=== PATIENT | male | born 1990 | race Caucasian/White ===

== ENCOUNTER 2016-07-20 01:01 | Emergency (ER) | payer SELFPAY ==
[2016-07-20] MEDS ORDERED: PHARMACY KEY 1 EACH EACH MC ONE (01:12)
[2016-07-20 01:18] VITALS: BP 130/79
[2016-07-20] MEDS ORDERED: PROPARACAINE HCL 0.5% OPTH OP ONE (01:19)
[2016-07-20] MEDS ORDERED: CYCLOPENTOLATE HCL 2% OP ONE (01:28)
--- NOTE | 2016-07-20 01:31 | ED Physician Documentation ---
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 Pain began around 1500 and has progressed. No visual problems other than light sensitivity.) - ROS CONST: no problems - PAST HX Past History: none Allergies/Adverse Reactions: Allergies Allergy/AdvReac Type Severity Reaction Status Date / Time No Known Allergies Allergy Verified 07/20/16 01:11 Home Medications: Ambulatory Orders Medication Instructions Recorded Hydrocodone/Acetaminophen [Cerro 1 each PO Q4H PRN #20 tablet 07/20/16 7.5-325 Tablet] Neomy Sulf/Polymyx B Sulf/Hc 1 drop OP TID #1 bottle 07/20/16 [Cortisporin Opth Susp] - SOCIAL HX Smoking History: non-smoker - FAMILY HX Family History: none - VITAL SIGNS Vital Signs: Vital Signs Temp Pulse Resp BP Pulse Ox 86 16 130/79 99 07/20/16 01:01 07/20/16 01:01 07/20/16 01:01 07/20/16 01:01 - REVIEWED ASSESSMENTS Nursing Assessment Reviewed: Yes Vitals Reviewed: Yes Progress - Progress Progress: near complete relief of pain after Proparacaine and Cyclogyl drop instilled. REcommend patient follow up with optometry tomorrow if pain continues. Will Rx antibiotic drops and norco ED Results Lab/Radiology - Orders Orders: ED Orders Category Date Time Status Cyclopentolate HCl [Cyclogyl] Med 07/20/16 01:28 Once 1 drop OP NOW [facility] 07/20/16 01:12 Discontinued 1 each [facility] ONE Proparacaine HCl [Ophthaine] Med 07/20/16 01:19 Once 2 drop OP NOW ONE Eye Trauma Physical Exam - Physical Exam General Appearance: no acute distress Examined with Slit Lamp: No (no slit lamp available) Visual Acuity: no globe trauma Eyelids: nml inspection Corneas: nml inspection, other (pt eye's instilled with Proparacaine drops. No wood's lamp available for fluoroscein stain uptake exam) Pupils: PERRL Anterior Chambers: nml inspection Skin: nml color Respiratory: no resp distress CVS: reg rate & rhythm, heart sounds normal Neuro/Psych: oriented x3 Discharge Clincal Impression: Exposure to welding light (arc), initial encounter Qualifiers: Encounter type: initial encounter Qualified Code(s): W89.0XXA - Exposure to welding light (arc), initial encounter Additional Instructions: Use Corisporin drops three times daily for 7 days Use Cerro as needed for pain Follow up with optometry this week for complete eye exam No work tomorrow and no further welding arc exposure to eyes the rest of this week Once return to welding, use appropriate eye protection at all times Home Medications: Ambulatory Orders Hydrocodone/Acetaminophen [Cerro 7.5-325 Tablet] 1 each PO Q4H PRN #20 tablet Neomy Sulf/Polymyx B Sulf/Hc [Cortisporin Opth Susp] 1 drop OP TID #1 bottle 01/26 Condition: Good Disposition: 01 HOME, SELF-CARE Decision to Admit: NO Decision Time: 01:34
[2016-07-20] MEDS ORDERED: HYDROcodone /APAP 5/325 1 EACH TABLET PO ONE (01:37)
== END 2016-07-20 01:45 | disposition home or self-care (01) ==
LOC: ED 01:01
DX: T26.42XA Burn of left eye and adnexa, part unspecified, initial encounter (principal); T26.41XA Burn of right eye and adnexa, part unspecified, initial encounter; X17.XXXA Contact with hot engines, machinery and tools, initial encounter
CPT/HCPCS: 99283; 99284; A9270-GY